=== PATIENT | female | born 1975 ===

== ENCOUNTER → 2025-05-18 08:54 | Outpatient (BNVA) | payer BC, SELFPAY | PROVIDERS: PCP Internal Medicine; Visit Provider Internal Medicine Cardiovascular Disease | DX: I49.3 Ventricular premature depolarization (principal) | CPT/HCPCS: 93005 ==

== ENCOUNTER 2025-06-23 11:02 | Outpatient (AMB) | payer BC, SELFPAY ==
[2025-06-23 11:09] VITALS: BP 130/90; PULSE 74; RESP 16; O2SAT 100; BMI 25.1
--- NOTE | 2025-06-23 11:09 | A.OFFPC_ITS ---
Vital Signs 06/23/25 11:09 Height 5 ft 4 in Weight 146 lb 4 oz BMI 25.1 BP 130/90 H Blood Pressure Location Lt brachial Position Sitting Respiration 16 Pulse 74 Pulse Source Pulse Oximeter Pulse Oximetry (%) 100 Oxygen Delivery Method Room Air Intake Visit Reasons: 6 months f/up Allergies No Known Allergies Allergy (Verified 05/29/25 15:32) Medication List - Last Reconciled 06/23/25 by Laury Browne MD amitriptyline 25 mg PO BEDTIME 90 days propranolol 20 mg PO DAILY 90 days Tobacco use date assessed: 01/08/25 Dental Screening Dental Screen Date: 01/08/25 HPI 6 months f/up HPI Details History of Present Illness The patient is a 49 year old female presenting for a 6-month follow-up appointment for management of palpitations and migraine headaches. Palpitations: - The patient has a history of palpitati ons, for which a Holter monitor study earlier this year revealed premature ventricular contractions (PVCs). - She is managed on propranolol 20 mg, a nd reports that the palpitations have been less frequent. - She has seen a multi share program coordinator, who recom mended a [employer] device for at-home monitoring and is also planning to schedule a stress test. - The patient notes her job is very stre ssful, which could be a contributing factor. Migraine Headaches: - The patient is managed for migraine he adaches with amitriptyline 25 mg at bedtime and propranolol. - She reports her headaches have been be tter with this combination therapy. Low Back Pain: - The patient reports a lower back pain . 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 Elevated Blood Pressure: - The patient's blood pressure at today' s visit was 130/90 mmHg, which was noted to be slightly elevated. - Her blood pressure was normal when millie cked at her cardiology appointment in April. Social History: - Employment: Works in childcare. - Activity: Reports she has been exercis ing. - Stress: Reports having a very stressfu l job. Problem List - Palpitations - Migraine headaches - History of Premature Ventricular Contr actions (PVCs) - Low back pain - Elevated blood pressure reading - Preventative care: Lab monitoring Plan - The patient will continue her current medications, including propranolol 20 mg and amitriptyline 25 mg. - For low back pain, it was recommended that the patient wear a Velcro support belt at work. - The patient's blood pressure will cont inue to be monitored. - The patient will continue to follow up with her multi share program coordinator and is scheduled for a stress test. - An order for blood work will be placed to be completed before her next appointment in November. - The patient declined the flu vaccine. - No medication refills are needed at th is time. Review of Systems - General: No fever no chills - Neurological: No headaches no dizziness - Ear nose throat: No sore throat no hearing difficulty no ear pain - Cardiovascular: No syncope, no chest pain - Gastrointestinal: No nausea vomiting or diarrhea - Endocrine: No polyuria polydipsia no heat intolerance - Genitourinary: No dysuria , no blood in urine Physical Exam - General: No acute distress - HEENT: No acute findings - Neck: Supple - Respiratory system: Able to talk in f ull sentences, no audible wheeze - Cardiovascular: S1-S2 regular in rate and rhythm - Gastrointestinal: No pain - Extremities: No new findings - [employer] MAN[employer]URING CONSULTANT: Alert awake oriented x3 motor in tact - Skin: Normal turgor PFSH Family History Sister No problems noted. Father Afib Social History Housing: House Alcohol intake: current Alcohol intake frequency: a few times a month Patient Tobacco Use Status: Never used Tobacco e-Cigarette/Vaping Use: Never Used service: No Current occupational status: employed Cognitive needs: No Hearing needs: No Vision needs: No Questionnaire Thrive Questionnaire Date Thrive assessed: 11/25/24 I am a: Patient What is your living situation today?: I have a steady place to live Within the past 12 months, did the food you bought not last and you didn't have the money to get more?: I choose not to answer this question Within the past 12 months, did you worry whether your food would run out before you got money to buy more?: I choose not to answer this question Do you have trouble paying for medicines?: I choose not to answer this question Do you have trouble getting transportation to medical appointments?: I choose not to answer this question Do you have trouble paying your heating and electricity bill?: I choose not to answer this question Do you have trouble taking care of your child, family member or friend?: I choose not to answer this question Do you have trouble with day-to-day activities such as bathing, preparing meals, shopping, managing finances, etc.?: I choose not to answer this question Are you currently unemployed and looking for a job?: I choose not to answer this question Are you interested in more education?: I choose not to answer this question Please select the resources that you would like help with: None THRIVE Score: 0 WILLIE-7 AMB Questionnaire WILLIE-7 Date WILLIE - 7 assessed: 11/25/24 Source: Developed by Drs. Karl Contreras, Katalina Khalil, Brian Burkett and colleagues, with an educational nicko from [employer]. Physical exam (Primary Care) Vital Signs: Last Vital Signs Pulse 74 06/23/25 11:09 Resp 16 06/23/25 11:09 BP 130/90 H 06/23/25 11:09 Pulse Ox 100 06/23/25 11:09 Oxygen Delivery Method Room Air 06/23/25 11:09 BMI result Body Mass Index 25.1 Tobacco/Smoking Status: Tobacco use Status Tobacco use date assessed 01/08/25 06/23/25 11:12 Patient Tobacco Use Status Never used Tobacco 06/23/25 11:12 e-Cigarette/Vaping Use Never Used 06/23/25 11:12 Thrive Assessment: Date of Thrive Assessment Date Thrive assessed 11/25/24 06/23/25 11:12 Coding Level of Care Code Est Pt Level 4 (03592) Diagnoses Other migraine without status migrainosus, intractable G43.819 Intractability: intractable Migraine type: other Status migrainosus presence: without status migrainosus PVC (premature ventricular contraction) I49.3 Elevated blood pressure reading R03.0 Chronic bilateral low back pain without sciatica M54.50; G89.29 Back pain laterality: bilateral Sciatica presence: without sciatica Stressful job Z56.6 Assessment & Plan Assessment & Plan (1) Migraine headache: Code(s): G43.909 - Migraine, unspecified, not intractable, without status migrainosus Category: Medical Qualifiers: Intractability: intractable Migraine type: other Status migrainosus presence: without status migrainosus Qualified Code(s): G43.819 - Other migraine, intractable, without status migrainosus (2) PVC (premature ventricular contraction): Code(s): I49.3 - Ventricular premature depolarization Category: Medical (3) Elevated blood pressure reading: Code(s): R03.0 - Elevated blood-pressure reading, without diagnosis of hypertension Category: Medical (4) Chronic lower back pain: Code(s): M54.50 - Low back pain, unspecified; G89.29 - Other chronic pain Category: Medical Qualifiers: Back pain laterality: bilateral Sciatica presence: without sciatica Qualified Code(s): M54.50 - Low back pain, unspecified; G89.29 - Other chronic pain (5) Stressful job: Code(s): Z56.6 - Other physical and mental strain related to work Category: Social Hx Plan Palpitations: - The patient has a history of palpitations, for which a Holter monitor study earlier this year revealed premature ventricular contractions (PVCs). - She is managed on propranolol 20 mg, and reports that the palpitations have been less frequent. - She has seen a multi share program coordinator, who recommended a [employer] device for at-home monitoring and is also planning to schedule a stress test. - The patient notes her job is very stressful, which could be a contributing factor. Migraine Headaches: - The patient is managed for migraine headaches with amitriptyline 25 mg at bedtime and propranolol. - She reports her headaches have been better with this combination therapy. Low Back Pain: - The patient reports a lower back pain. 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 Elevated Blood Pressure: - The patient's blood pressure at today's visit was 130/90 mmHg, which was noted to be slightly elevated. - Her blood pressure was normal when checked at her cardiology appointment in April. Social History: - Employment: Works in childcare. - Activity: Reports she has been exercising. - Stress: Reports having a very stressful job. Problem List - Palpitations - Migraine headaches - History of Premature Ventricular Contractions (PVCs) - Low back pain - Elevated blood pressure reading - Preventative care: Lab monitoring Plan - The patient will continue her current medications, including propranolol 20 mg and amitriptyline 25 mg. - For low back pain, it was recommended that the patient wear a Velcro support belt at work. - The patient's blood pressure will continue to be monitored. - The patient will continue to follow up with her multi share program coordinator and is scheduled for a stress test. - An order for blood work will be placed to be completed before her next appointment in November. - The patient declined the flu vaccine. - No medication refills are needed at this time. Orders: Orders Complete Blood Count Auto Diff Today G43.819 - Other migraine, intractable, without status migrainosus, G89.29 - Other chronic pain, I49.3 - Ventricular premature depolarization, M54.50 - Low back pain, unspecified, R03.0 - Elevated blood-pressure reading, without diagnosis of hypertension, Z56.6 - Other physical and mental strain related to work Lipid Panel Today G43.819 - Other migraine, intractable, without status migrainosus, I49.3 - Ventricular premature depolarization Comprehensive [place]. Panel Fast Today G43.819 - Other migraine, intractable, without status migrainosus, I49.3 - Ventricular premature depolarization TSH reflex Free T4 Today G43.819 - Other migraine, intractable, without status migrainosus, I49.3 - Ventricular premature depolarization
== END 2025-06-23 11:38 | disposition home or self-care (01) ==
LOC: HO.HMCC 11:03
PROVIDERS: PCP Internal Medicine; Visit Provider Internal Medicine
DX: G43.819 Other migraine, intractable, without status migrainosus (principal); I49.3 Ventricular premature depolarization; R03.0 Elevated blood-pressure reading, without diagnosis of hypertension; M54.50 Low back pain, unspecified; G89.29 Other chronic pain; Z56.6 Other physical and mental strain related to work

== ENCOUNTER 2025-07-10 07:31 | Day surgery (SDC) | payer BC, SELFPAY ==
--- OUTSIDE RECORDS SUMMARY | 2025-07-06 15:21 | XMS_ITS | Encounter Summary ---
Author Organization [facility] Address [address] [place] [address] Care Team Providers Care Chief Of Pediatric Urology Name Role Phone Laury Browne MD Primary Care Provider [phone] Encounter Details Date Type Department Care Team (Latest Contact Info) Description 01/06/2025 Lab Requisition [facility] - Main Lab [address] [place] [address] Ludin Lion MD [address] [address] Encounter for gynecological examination (general) (routine) without abnormal findings Social History Tobacco Use Types Packs/Day Years Used Date Smoking Tobacco: Never Smokeless Tobacco: Never Comments Unknown Sex and Gender Information Value Date Recorded Sex Assigned at Not on file Legal Sex Female 9:49 PM EST Gender Identity Not on file Sexual Orientation Not on file documented as of this encounter Plan of Treatment Not on file documented as of this encounter Procedures Procedure Name Priority Date/Time Associated Diagnosis Comments HPV WITH REFLEX GENOTYPE Routine 01/05/2025 12:00 AM EDT Encounter for gynecological examination (general) (routine) without abnormal findings PAP SMEAR Routine 01/05/2025 12:00 AM EDT Encounter for gynecological examination (general) (routine) without abnormal findings documented in this encounter Results * HPV with reflex genotype (01/05/2025 12:00 AM EDT) HPV Negative Negative LAB MICROBIOLOGY METHOD 01/13/2025 3:05 PM EDT [facility] Brushing/Spatula Cervix uteri structure / Unknown 01/05/2025 01/06/2025 6:37 AM EDT Ludin Lion MD LAB MOLECULAR DIAGNOSTICS BLU RUBIO Edited Result - Final [facility] [address] [place] [address], * Pap smear (01/05/2025 12:00 AM EDT) Interpretation Negative for intraepithelial lesion or malignancy 01/12/2025 4:18 PM EDT [facility] Clinical Information HSIL ON CX BX 202101/12/2025 4:18 PM EDT [facility] General Categorization Negative 01/12/2025 4:18 PM EDT [facility] Other Findings Fungal organisms morphologically consistent with Shilpa spp Shift in chilo suggestive of bacterial vaginosis 01/12/2025 4:18 PM EDT [facility] LMP 12/15/2024 01/12/2025 4:18 PM EDT [facility] Specimen Adequacy Satisfactory for evaluation, endocervical/cuadra sformation zone component absent 01/12/2025 4:18 PM EDT [facility] Pap Methodology Liquid Based Pap Test 01/12/2025 4:18 PM EDT [facility] Disclaimer The Pap test is a screening test which carries an inherent false negative rate. These test results should be correlated with the patient's clinical findings and history. This Pap test was processed using an automated screening system. Technical cytopathology services provided by [facility], at [address] [place] [address] (CLIA # [id number]/Diogo Doll MD, Sleep Technician.) 01/12/2025 4:18 PM EDT [facility] Console Pap Interpretation Reported 01/12/2025 4:18 PM EDT [facility] Brushing/Spatula Cervix uteri structure / Unknown 01/05/2025 01/06/2025 6:37 AM EDT us Ludin Lion MD LAB CYTOLOGY ORDERABLES Final Result [facility] [address] [place] [address], documented in this encounter Visit Diagnoses Diagnosis Encounter for gynecological examination (general) (routine) without abnormal findings documented in this encounter Care Teams Chief Of Pediatric Urology Relationship Specialty Start Date End Date Laury Browne MD [address] [place] [address] PCP - General Internal Medicine 01/12/22 documented as of this encounter
--- OUTSIDE RECORDS SUMMARY | 2025-07-06 15:21 | XMS_ITS | Clinical Summary ---
Author Organization [address] Address [address] [place] [address] Phone Care Team Providers Care Plant Buyer Name Role Phone Laury Browne MD Primary Care Provider [phone] Surgical History Surgery Date Site/Laterality Comments OTHER SURGICAL HISTORY PROCEDURE: DENIES PREVIOUS SURGERY Family History Medical History Relation Name Comments Stroke Father Breast cancer Maternal Grandmother Breast cancer Paternal Grandmother Relation Name Status Comments Father Maternal Grandmother Paternal Grandmother Social History Tobacco Use Types Packs/Day Years Used Date Smoking Tobacco: Never Smokeless Tobacco: Never Comments No Sex and Gender Information Value Date Recorded Sex Assigned at Not on file Legal Sex Female 9:49 PM EST Gender Identity Not on file Sexual Orientation Not on file Obstetrics History Para Term AB IAB SAB Ectopic Multiple Livin g Live Births 2 Last Filed Vital Signs Vital Sign Reading Time Taken Comments Blood Pressure 131/82 09/12/2022 11:44 AM EST Pulse 61 09/12/2022 11:44 AM EST Temperature - - Respiratory Rate - - Oxygen Saturation - - Inhaled Oxygen Concentration - - Weight 67.1 kg (148 lb) 02/12/2025 8:30 AM EDT Height 162.6 cm (5' 4 ) 02/12/2025 8:30 AM EDT Body Mass Index 25.4 02/12/2025 8:30 AM EDT Plan of Treatment Health Maintenance Due Date Last Done Comments Colorectal Cancer Screening: Colonoscopy 1974 DTaP,Tdap,and Td Vaccines (1 - Tdap) 1993 Hepatitis B Vaccines (1 of 3 - 19+ 3-dose series) 1993 HIV Screening 07/29/2022 Hepatitis C Screening 07/29/2022 Social Influencers of Health Screening 07/29/2022 Depression Screening 08/27/2024 Pneumococcal Vaccine: 50+ Years (1 of 1 - PCV) 2024 Zoster Vaccines (1 of 2) 2024 COVID-19 Vaccine (3 - 2024- season) 2025 12/14/2020, 11/21/2020 Influenza Vaccine (#1) 2025 06/22/2021, 2016 Breast Cancer Screening 02/12/2027 02/13/20, 04/23/2022, 07/05/2020, Additional history exists Cervical Cancer Screening: HPV 01/05/2030 01/05/2025 RSV Immunization Adult Patients (1 - 1-dose 75+ series) 2049 HIB Vaccines Aged Out No longer eligi ble based on patient's age to complete this topic HPV Vaccines Aged Out No longer eligi ble based on patient's age to complete this topic Hepatitis A Vaccines Aged Out No long er eligible based on patient's age to complete this topic IPV Vaccines Aged Out No longer eligi ble based on patient's age to complete this topic MMR Vaccines Aged Out No longer eligi ble based on patient's age to complete this topic Meningococcal ACWY Vaccine Aged Out N o longer eligible based on patient's age to complete this topic Meningococcal B Vaccine Aged Out No l onger eligible based on patient's age to complete this topic RSV Immunization Patients Under 20 months Aged Out No longer eligible based on patient's age to complete this topic Varicella Vaccines Aged Out No longer eligible based on patient's age to complete this topic Procedures Procedure Name Priority Date/Time Associated Diagnosis Comments MG MAMMO DIGITAL SCREENING W JABIER BILAT Routine 02/12/2025 8:36 AM EDT Encounter for screening mammogram for malignant neoplasm of breast HPV WITH REFLEX GENOTYPE Routine 01/05/2025 12:00 AM EDT Encounter for gynecological examination (general) (routine) without abnormal findings from Last 3 Months or Most Recently Relevant to Health Maintenance Results * MG Mammo Digital Screening w Jabier bilat (02/12/2025 8:36 AM EDT) Anatomical Region Laterality Modality Breast Bilateral Mammography 02/12/2025 8:54 AM EDT Impressions 02/12/2025 8:57 AM EDT No mammographic evidence of malignancy. A negative mammogram in the presence of a clinically suspicious palpable abnormality does not preclude the possibility of malignancy or alter the indications for biopsy. PQRI CPT II 3341F Code 70173, 28372 PQRI 225 CPT II 7025F TISSUE DENSITY: The breasts are heterogeneously dense, which may obscure small masses. (BI-RADS category C) IMPRESSION: Benign. BI-RADS CATEGORY: 1 - NEGATIVE RECOMMENDATION: Screening bilateral mammogram is recommended in 1 year. Mammo Location: [facility], [address] [place] [address] -------- FINAL REPORT -------- Dictated By: David Wright Dictated Date: 02/12/2025 08:54 ET Assigned Physician: David Wright Reviewed and Electronically Signed By: Dvaid Wright Signed Date: 02/12/2025 08:57 ET Workstation ID: [id number] Transcribed By: Self Edit Transcribed Date: 02/12/2025 08:54 ET Narrative 02/12/2025 8:57 AM EDT CLINICAL: The patient is a 49 years Female presenting for routine screening mammography. COMPARISON: Most recently 04/22/2022 and most remotely 04/09/2017. TECHNIQUE: Full-field digital mammography of the breasts bilaterally consisting of tomosynthesis in MLO and CC projection is performed in the [employer] 2000-D unit. Computer aided detection utilizing the iCAD system was utilized. FINDINGS: The breasts are again seen to be composed of a combination of fatty and moderately dense fibroglandular elements. There is no cluster of microcalcifications, mass, or area of architectural distortion. There is no skin thickening or nipple retraction. Procedure Note David Wright MD - 02/12/2025 CLINICAL: The patient is a 49 years Female presenting for routinescreening mammography. COMPARISON: Most recently 04/22/2022 and most remotely 04/09/2017. TECHNIQUE: Full-field digital mammography of the breasts bilaterallyconsisting of tomosynthesis in MLO and CC projection is performed in the[employer] 2000-D unit. Computer aided detection utilizing the [employer] was utilized. FINDINGS: The breasts are again seen to be composed of a combination offatty and moderately dense fibroglandular elements. There is no clusterof microcalcifications, mass, or area of architectural distortion. Thereis no skin thickening or nipple retraction. IMPRESSION: No mammographic evidence of malignancy. A negative mammogram in the presence of a clinically suspicious palpableabnormality does not preclude the possibility of malignancy or alter theindications for biopsy. PQRI CPT II 3341F Code 26507, 55652 PQRI 225 CPT II 7025F TISSUE DENSITY: The breasts are heterogeneously dense, which may obscuresmall masses. (BI-RADS category C) IMPRESSION: Benign. BI-RADS CATEGORY: 1 - NEGATIVE RECOMMENDATION: Screening bilateral mammogram is recommended in 1 year. Mammo Location: [facility] [place] [facility], [address] [place] [id number] -------- FINAL REPORT -------- Dictated By: David Wright Dictated Date: 02/12/2025 08:54 ET Assigned Physician: David Wright Reviewed and Electronically Signed By: David Wright Signed Date: 02/12/2025 08:57 ET Workstation ID: [id number] Transcribed By: Self Edit Transcribed Date: 02/12/2025 08:54 ET us Ludin Lion MD IMG BI PROCEDURES Final Result * HPV with reflex genotype (01/05/2025 12:00 AM EDT) HPV Negative Negative LAB MICROBIOLOGY METHOD 01/13/2025 3:05 PM EDT [facility] Brushing/Spatula Cervix uteri structure / Unknown 01/05/2025 01/06/2025 6:37 AM EDT us Ludin Lion MD LAB MOLECULAR DIAGNOSTICS BLU RUBIO Edited Result - Final [facility] [address] [place] [address], [place] [phone] from Last 3 Months or Most Recently Relevant to Health Maintenance Insurance [facility] Advance Directives Documents on File Type Date Recorded Patient Manager Life Expl anation Health Care Decision (hx) 01/27/2022 AD MAHER DIRECTIVE Health Care Decision (hx) 01/27/2022 AD MAHER DIRECTIVE Health Care Decision (hx) 01/27/2022 AD MAHER DIRECTIVE Care Teams Plant Buyer Relationship Specialty Start Date End Date Laury Browne MD [address] [place] [phone] PCP - General Internal Medicine 01/12/22
--- NOTE | 2025-07-07 14:07 | P.CONAN_ITS ---
Documented by User: Yashira Coppola NP 07/07/25 14:09 HPI - Anesthesia Eval Consult details Narrative: 49 yr old female for colonoscopy Palpitations: Follows with [facility] PCP, last visit 06/23/25 - The patient has a history of palpitations, for which a Holter monitor study earlier this year revealed premature ventricular contractions (PVCs). - She is managed on propranolol 20 mg, and reports that the palpitations have been less frequent. - She has seen a senior market intelligence consultant, who recommended a KardiaMobile device for at-home monitoring and is also planning to schedule a stress test. - The patient notes her job is very stressful, which could be a contributing factor. [facility] Active Problems Active Problems: All Active Problems Stressful job (Acute) Chronic lower back pain (Acute) Elevated blood pressure reading (Acute) PVC (premature ventricular contraction) (Acute) Family history of early CAD (Acute) Family history of stroke (Acute) Family history of atrial fibrillation (Acute) Over weight (Acute) Palpitation (Acute) Colon cancer screening (Acute) Hot flashes (Acute) Fatigue (Acute) Mood swings (Acute) Bloating (Acute) Lack of energy (Acute) Encounter for general adult medical examination with abnormal findings (Acute) Migraine headache (Acute) Past Medical History Medical History Migraines PAC (premature atrial contraction) PVCs (premature ventricular contractions) Palpitations Family History Family History Sister No problems noted. Father Afib Social History Social History Housing: House Alcohol intake: current Alcohol intake frequency: a few times a month Patient Tobacco Use Status: Never used Tobacco e-Cigarette/Vaping Use: Never Used Are you DNR?: No Advance Directives: No Advance Directives Information Provided: Yes FDLMP: 06/20/2025 service: No Current occupational status: employed Cognitive needs: No Hearing needs: No Vision needs: No Meds Allergies Allergy/AdvReac Type Severity Reaction Status Date / Time No Known Allergies Allergy Verified 05/29/25 15:32 Exam Narrative Narrative: ECHO 11/2024 Conclusions: - The left ventricular systolic function is normal. The visually estimated ejection fraction is between 60-65%. - No obvious valvular pathology seen on this study. EKG 11/2024 NSR rate 72 Documented by User: Leatha De La O MD 07/10/25 09:51 PMFSH Past Medical History Medical History Migraines PAC (premature atrial contraction) PVCs (premature ventricular contractions) Palpitations Family History Family History Sister No problems noted. Father Afib Surgical History History of Problems with Anesthesia: No Social History Social History Housing: House Alcohol intake: current Alcohol intake frequency: a few times a month Patient Tobacco Use Status: Never used Tobacco e-Cigarette/Vaping Use: Never Used Are you DNR?: No Advance Directives: No Advance Directives Information Provided: Yes FDLMP: 06/20/2025 service: No Current occupational status: employed Cognitive needs: No Hearing needs: No Vision needs: No Meds Allergies Allergy/AdvReac Type Severity Reaction Status Date / Time No Known Allergies Allergy Verified 05/29/25 15:32 Exam Airway Mallampati Class: II TM Dist: >3cm Neck ROM: Full Loose/Missing/Broken Teeth: No Heart: RRR Lungs: CTA Assessment and Plan Assessment Anesthesia Assessment: Anesthesia Plan Discussed and Chart Reviewed Final Anesthetic Review History of Problems with Anesthesia: No NPO: Yes ASA Class: II Final Preanesthetic Review: Meds/Allgs Chart Reviewed, Consent Obtained/Reviewed and Anes Risks/Benef Reviewed Patient Risk: Low Procedure Risk: Low Anesthetic Plan Anesthetic Plan: MAC: Disposition: Standard PACU
[2025-07-08 14:06] VITALS: BMI 25.6
[2025-07-10 07:52] LABS: UPreg QC Valid YES
[2025-07-10 07:54] VITALS: BP 122/84; PULSE 69; RESP 18; TEMP 36.7; O2SAT 99; BMI 25.2
[2025-07-10] MEDS: Lactated Ringers 1,000 ML 100 ML IVCONT (08:15)
[2025-07-10 10:20] VITALS: BP 96/63; PULSE 68; RESP 18; TEMP 36.4; O2SAT 99
--- NOTE | 2025-07-10 10:23 | PM.OP ---
Brief Operative Note Date of Service: 07/10/25 Pre-op diagnosis: Screening Post-op diagnosis: other (Polyps) Procedure: Colonoscopy to the cecum with cold snare polypectomy of Transverse colon polyp, and bx/removal of Ascending colon polyp Surgeon: Karl Bo MD Anesthesia: MAC Was an Pin Sorter And Bagger used for this Procedure?: No Estimated blood loss (mL): 2.0 Pathology: other (A. Transverse colon polyp B. Ascending colon polyp) Condition: stable Disposition: PACU
[2025-07-10 10:35] VITALS: BP 107/70; PULSE 64; RESP 13; O2SAT 100
[2025-07-10 10:50] VITALS: BP 125/79; PULSE 54; RESP 13; TEMP 37.2; O2SAT 100
--- NOTE | 2025-07-10 11:23 | OP_ITS ---
DATE OF SERVICE: 07/10/2025 SURGEON: Karl Bo MD INDICATIONS: The patient presents for evaluation of colorectal cancer screening. Full consent has been obtained from her for this, including risks of bleeding and perforation. PREOPERATIVE DIAGNOSIS: Colorectal cancer screening. POSTOPERATIVE DIAGNOSIS: PROCEDURE PERFORMED: ESTIMATED BLOOD LOSS: COMPLICATIONS: ANESTHESIA: Medication used, monitored anesthesia care. ASSISTANTS: SPECIMENS: POSTOPERATIVE DIAGNOSES: Colorectal cancer screening, small colon polyps, diverticulosis, and internal hemorrhoids. PROCEDURES PERFORMED: Colonoscopy to the cecum with cold snare polypectomy x 1 and biopsy and removal of polyp. DESCRIPTION OF PROCEDURE: The patient was placed in the left lateral decubitus position. The digital rectal exam revealed no abnormalities. The Olympus video pediatric colonoscope was entered into the rectum and advanced easily to the cecum. Once in the cecum, I did identify normal-appearing cecal pouch with appendiceal orifice and a normal-appearing ileocecal valve. The entire cecum and ileocecal valve appeared normal. There was transillumination of light deep in the right lower quadrant. The scope was slowly withdrawn assessing all mucosal surfaces carefully. Preparation was excellent. In the proximal ascending colon was a flat, approximately 3 or 4 mm polyp, which was biopsied and completely removed with a cold biopsy forceps. In the transverse colon was an approximately 5 or 6 mm polyp, which was removed by cold snare polypectomy and recovered by suction. The polypectomy site appeared clean, without any sign of residual polyp nor significant bleeding. I did not visualize any other polyps, colitis, nor angiodysplasia. There was a mild amount of sigmoid diverticulosis. In the rectum, scope was retroflexed visualizing internal hemorrhoids but no other pathology. The rectal mucosa appeared normal. Scope was straightened and withdrawn from the patient. She tolerated the procedure well and was returned to the recovery area in stable condition. IMPRESSION: 1. Small colon polyps. 2. Mild diverticulosis. 3. Small internal hemorrhoids. PLAN: The results of the biopsy will be checked. If either of the polyps is a tubular adenoma, then I would recommend a followup colonoscopy in 5 years. If they are both hyperplastic, I would recommend a followup colonoscopy in 10 years. She will otherwise see me as needed. MD REJI Burton/DARLEEN / [id number] MTDD
== END 2025-07-10 11:12 | disposition home or self-care (01) ==
PROVIDERS: Nurse Practitioner; PCP Internal Medicine; Visit Provider Internal Medicine
PROC: 0DJD8ZZ Inspection of Lower Intestinal Tract, Via Natural or Artificial Opening Endoscopic (ICD-10-PCS; CPT 45378; principal; 2025-07-10 08:30)
DX: Z12.11 Encounter for screening for malignant neoplasm of colon (principal); D12.2 Benign neoplasm of ascending colon; D12.3 Benign neoplasm of transverse colon; K57.30 Diverticulosis of large intestine without perforation or abscess without bleeding; K64.8 Other hemorrhoids; G43.909 Migraine, unspecified, not intractable, without status migrainosus; R00.2 Palpitations; Z79.899 Other long term (current) drug therapy
CPT/HCPCS: 45385; 45380; 81025; 88305; J2003; J2704; J3010

== ENCOUNTER → 2025-08-25 08:02 | Outpatient (REF) | payer BC, SELFPAY ==
--- OUTSIDE RECORDS SUMMARY | 2025-07-10 03:30 | XMS_ITS ---
Author Organization [facility] Address [address] [place] [address] Care Team Providers Care Outsole Cementer Name Role Phone Pavan KENDALL, Laury Primary Care Provider Karl Buck [phone] REASON FOR VISIT screening Encounters Encounter Location Date Provider Diagnosis [facility] [place] Out[place] [address] [place], [place] [phone] 07/10/2025 Karl Bo Colon cancer scree brenda Z12.11 and Colon polyps K63.5 Assessments Encounter Date Diagnosis (ICD Code) Assessment Notes Treatment Notes Treatment Clinical Notes Section Notes 07/10/2025 Colon cancer screening (ICD-10 - Z12.11) 07/10/2025 Colon polyps (ICD-10 - K63.5) Plan Of Treatment No Information Progress Notes * AIDENHIWOTEMBERDOB:[birth year] (49 yo F)Acc No.[id number]:07/10/2025 COLON WITH MAC Patient: EMBER VILLASENOR Provider: Jam Bo MD :1975 A ge:49 Y S ex:Female Date:07/10/2025 Address:[address] [place], [place] [id number] Pcp:Laury Browne MD Subjective: * Chief Complaints: * S creening Assessment: * Assessment: 1. C olon cancer screening - Z12.11 (Primary) 2 . C olon polyps - K63.5? Plan: * Procedure Codes: 4 5379 COLONOSCOPY W/FB [id number] LESION REMOVAL [id number] INTRVL 3+YRS PTS CLNSCP [id number] RCMND FLW-UP 10 YRS DOCD Billing Information: * Procedure Codes: 60450 COLONOSCOPY W/FB REMOVAL. 57030 LESION REMOVAL COLONOSCOPY. 0529F INTRVL 3+YRS PTS CLNSCP DOCD. 0528F RCMND FLW-UP 10 YRS DOCD. * The named appointment provid er may or may not be the originator of this progress note, and it is not deemed complete until electronically signed by the appointment provider. Sign off status: Pending * Provider: Jam Bo MD Date: 1 09/09/2024 Generated for Fang santos/Rhiannon/Edditting on: 09:27 AM EST
--- NOTE | 2025-08-25 08:05 | CA_ITS ---
Acquisition Time: 2025-08-25 08:02:24 Total Exercise Time: 00:10:00 Test Indications: pac's, pvc's Medications: Protocol: KOTA Max HR: 151 BPM 88% of Pred: 170 BPM Max BP: 186/84 mmHG Max Work Load: 11.7 METS Exercise stress test with exercise 10 mins of Kota Protocol, achieving 88% MPHR, without any reports of CP or dizziness, without any arrythmias, with normotensive response to exercise. Without any EKG changes meeting criteria for ischemia. In recovery, pt continued to feel well. Test reveiwed with Dr. Hahn. Referred By: Andreas Keith Electronically Signed By: Boston Escalante
--- OUTSIDE RECORDS SUMMARY | 2025-08-25 09:27 | XMS_ITS | Patient Health Record ---
Author Organization [facility] Address [address] [place] [address] Care Team Providers Care Lpn Cma Name Role Phone Pavan KENDALL, [facility] Primary Care Provider Karl Buck Unavailable [phone] Allergies No Known Allergies Results Component Value Reference Range Notes Pathology (Not yet reviewed by provider) Interpretation: Performing Lab:[facility], [address] [place] [phone] Notes/Report: Ur Preg Test Reviewed date:07/13/2025 01:12:42 AM Interpretation: Performing Lab:[facility], [address] [place] [phone] Notes/Report: Urine NEGATIVE NEGATIVE This test was developed to detect early . False negative results may occur after the 5th - 7th week of when using this test method. If clinically indicated, consider a serum hCG. Reason For Referral Referring Provider First Name Bebe Referring Provider Last Name Shannon Referring Provider Speciality Internal M edicine Referred Organization [facility] Referred Provider Karl Bo Referred Address [address] [place] [address],[address],[place], [place],[address], Referred Provider Specialty Gastroentero logy General Notes Latricia Hernandez 2024 02:40:34 PM >requested referral from Dr. Ortega' office for visit with Dr. Bo on 04-07-2025 Referral Priority Routine Medications Medication SIG (Take, Route, Fr equency, Duration) Notes Start Date End Date Status Amitriptyline HCl Ac tive Propranolol HCl Acti ve Social History Tobacco Use: Social History Observation Description Date Details (start date - stop date) Never Smoker NA - NA Social History Drug/Alcohol: Social Info Question Answer Notes AUDIT-C (Standard) Did you have a drink containing alcohol in the past year? Yes How often did you have a drink containing alcohol in the past year? Never (0 point) How many drinks did you have on a typical day when you were drinking in the past year? 1 or 2 drinks (0 point) How often did you have six or more drinks on one occasion in the past year? Never (0 point) Points 0 Interpretation Negative Tobacco Use: Social Info Question Answer Notes Tobacco Control (Standard) Tobacco use: Nonsmoker Additional Details Category Social Info Options Details Miscellaneous: Marital status: Occupation: Preschool teache r for [employer] Problems Problem Type SNOMED Code ICD Code Onset Dates Problem Status W/U Status Risk Notes Problem Colon cancer screening (622972206) Colon cancer screening (Z12.11) Active confirmed Problem Preprocedural examination (887606739943740) Preprocedural examination (Z01.818) Active confirmed Vital Signs Blood pressure diastolic 77 mm Hg 04/07/2025 Height 64 in 04/07/2025 Blood pressure systolic 111 mm Hg 04/07/2025 Weight 146 lbs 04/07/2025 BMI 25.06 kg/m2 04/07/2025 Procedures Procedure Date Ordered Date Performed Result Body Sit e COLONOSCOPY 04/07/2025 N/A Encounters Encounter Location Date Provider Diagnosis [facility] [place] [facility] [place] [address] [place] [phone] 07/10/2025 Karl Bo Colon cancer screeni ng Z12.11 and Colon polyps K63.5 [facility] [address] [place] [address] 04/07/2025 Karl Bo Colon cancer screeni ng Z12.11 and Preprocedural examination Z01.818 Assessments Encounter Date Diagnosis (ICD Code) Assessment Notes Treatment Notes Treatment Clinical Notes Section Notes 07/10/2025 Colon cancer screening (ICD-10 - Z12.11) 07/10/2025 Colon polyps (ICD-10 - K63.5) 04/07/2025 Colon cancer screening (ICD-10 - Z12.11) Overall, Ember appears quite well. Given her age and excellent clinical appearance, I did recommend a colonoscopy for screening purposes. We did review the rationale for that in regard to colon cancer prevention. Full consent has been obtained for this, including risks of bleeding and perforation. The procedure will be done with monitored anesthesia care. Ember was comfortable with this plan. Thank you again for allowing me to participate in Ember's care. I shall continue to keep you advised of her progress. 04/07/2025 Preprocedural examination (ICD-10 - Z01.818) Overall, Ember appears quite well. Given her age and excellent clinical appearance, I did recommend a colonoscopy for screening purposes. We did review the rationale for that in regard to colon cancer prevention. Full consent has been obtained for this, including risks of bleeding and perforation. The procedure will be done with monitored anesthesia care. Ember was comfortable with this plan. Thank you again for allowing me to participate in Ember's care. I shall continue to keep you advised of her progress. Plan Of Treatment Pending Test Test Name Order Date COLONOSCOPY 04/07/2025 Pathology 07/10/2025 Insurance Providers Payer Name Payer Address Payer Phone Subscriber Number Group Number Insured Name Patient Relationship to Insured Coverage Start Date Coverage End Date [facility] [employer] [address] [place] [address] [id number] EBMER Self - patient is the insured Medical (General) History Medical History History ICD Code Denies RI,DM,CVA,Lung disease,renal dise ase Migraines Irregular heartbeat - had a 3 day monitor and a Cardiac Echo- -seeing [facility] [place] in 04/2025
--- OUTSIDE RECORDS SUMMARY | 2025-08-25 09:27 | XMS_ITS | Encounter Summary ---
Author Organization [facility] Address [address] [place] [address] Care Team Providers Care Cook Tortilla Name Role Phone Laury Browne MD Primary Care Provider [phone] Encounter Details Date Type Department Care Team (Latest Contact Info) Description 01/06/2025 Lab Requisition [facility] Lab [address] [place] [address] Ludin Lion MD [address] [address] Encounter for gynecological examination (general) [...] LAB MICROBIOLOGY METHOD 01/13/2025 3:05 PM EDT [facility] Brushing/Spatula Cervix uteri structure / Unknown 01/05/2025 01/06/2025 6:37 AM EDT Ludin Lion MD LAB MOLECULAR DIAGNOSTICS BLU RUBIO Edited Result - Final [facility] [address] [place] [address], * Pap smear (01/05/2025 12:00 AM EDT) Interpretation Negative for intraepithelial lesion or malignancy 01/12/2025 4:18 PM EDT [facility] at 1618 EDT Clinical Information HSIL ON CX BX 202101/12/2025 4:18 PM EDT [facility] General Categorization Negative 01/12/2025 4:18 PM EDT [facility] Other Findings Fungal organisms morphologically consistent with Shilpa spp Shift in chilo suggestive of bacterial vaginosis 01/12/2025 4:18 PM EDT [facility] LMP 12/15/2024 01/12/2025 4:18 PM EDT [facility] Specimen Adequacy Satisfactory for evaluation, endocervical/cuadra sformation zone component absent 01/12/2025 4:18 PM EDT [facility] Pap Methodology Liquid Based Pap Test 01/12/2025 4:18 PM EDT [facility] Disclaimer The Pap test is a screening test which carries an inherent false negative rate. These test results should be correlated with the patient's clinical findings and history. This Pap test was processed using an automated screening system. Technical cytopathology services provided by [facility], at [address] [place] [address] (CLIA # [id number]/Diogo Dlol MD, Inspector Dials.) 01/12/2025 4:18 PM EDT [facility] Console Pap Interpretation Reported 01/12/2025 4:18 PM EDT [facility] Brushing/Spatula Cervix uteri structure / Unknown 01/05/2025 01/06/2025 6:37 AM EDT us Ludin Lion MD LAB CYTOLOGY ORDERABLES Final Result [facility] [address] [place] [address], documented in this encounter Visit Diagnoses Diagnosis Encounter for gynecological examination (general) (routine) without abnormal findings documented in this encounter Care Teams Cook Tortilla Relationship Specialty Start Date End Date Laury Browne MD [address] [place] [address] PCP - General Internal Medicine 01/12/22 documented as of this encounter
--- OUTSIDE RECORDS SUMMARY | 2025-08-25 09:28 | XMS_ITS | Clinical Summary ---
Author Organization [address] Address [address] [place] [address] Phone Care Team Providers Care Crankshaft Straightener Name Role Phone Laury Browne MD Primary Care Provider [phone] Surgical History Surgery Date Site/Laterality Comments OTHER [...] for biopsy. PQRI CPT II 3341F Code 52843, 26121 PQRI 225 CPT II 7025F TISSUE DENSITY: The breasts are heterogeneously dense, which may obscure small masses. (BI-RADS category C) IMPRESSION: Benign. BI-RADS CATEGORY: 1 - NEGATIVE RECOMMENDATION: Screening bilateral mammogram is recommended in 1 year. Mammo Location: [facility], [address] [place] [address] -------- FINAL REPORT -------- Dictated By: David Wright Dictated Date: 02/12/2025 08:54 ET Assigned Physician: David Wright Reviewed and Electronically Signed By: David Wright Signed Date: 02/12/2025 08:57 ET Workstation ID: [id number] Transcribed By: Self Edit Transcribed Date: 02/12/2025 08:54 ET Narrative 02/12/2025 8:57 AM EDT CLINICAL: The patient is a 49 years Female presenting for routine screening mammography. COMPARISON: Most recently 04/22/2022 and most remotely 04/09/2017. TECHNIQUE: Full-field digital mammography of the breasts bilaterally consisting of tomosynthesis in MLO and CC projection is performed in the Mediaspectrume 2000-D unit. Computer aided detection utilizing the [...] 2000-D unit. Computer aided detection utilizing the BalayaDsystem was utilized. FINDINGS: The breasts are again [...] for biopsy. PQRI CPT II 3341F Code 67385, 99459 PQRI 225 CPT II 7025F TISSUE DENSITY: The breasts are heterogeneously dense, which may obscuresmall masses. (BI-RADS category C) IMPRESSION: Benign. BI-RADS CATEGORY: 1 - NEGATIVE RECOMMENDATION: Screening bilateral mammogram is recommended in 1 year. Mammo Location: [facility] [place] [facility], [address] [place] [phone] -------- FINAL REPORT -------- Dictated By: David Wright Dictated Date: 02/12/2025 08:54 ET Assigned Physician: David Wright Reviewed and Electronically Signed By: David Wright Signed Date: 02/12/2025 08:57 ET Workstation ID: [id number] Transcribed By: Self Edit Transcribed Date: 02/12/2025 08:54 ET us Ludin Lion MD IMG BI PROCEDURES Final Result * HPV with reflex genotype (01/05/2025 12:00 AM EDT) HPV Negative Negative LAB MICROBIOLOGY METHOD 01/13/2025 3:05 PM EDT [facility] Brushing/Spatula Cervix uteri structure / Unknown 01/05/2025 01/06/2025 6:37 AM EDT us Ludin Lion MD LAB MOLECULAR DIAGNOSTICS BLU RUBIO Edited Result - Final [facility] [address] [place] [address], [place] [phone] from Last 3 Months or Most Recently Relevant to Health Maintenance Insurance [facility] Advance Directives Documents on File Type Date Recorded Patient Financial Planning Consultant Expl anation Health Care Decision (hx) 01/27/2022 AD MAHER DIRECTIVE Health Care Decision (hx) 01/27/2022 AD MAHER DIRECTIVE Health Care Decision (hx) 01/27/2022 AD MAHER DIRECTIVE Care Teams Crankshaft Straightener Relationship Specialty Start Date End Date Laury Browne MD [address] [place] [phone] PCP - General Internal Medicine 01/12/22
== END ==
LOC: HO.CARD 08:02
PROVIDERS: PCP Internal Medicine; Visit Provider Internal Medicine Cardiovascular Disease
DX: I49.3 Ventricular premature depolarization (principal)
CPT/HCPCS: 93017

== ENCOUNTER → 2025-08-25 08:05 | Outpatient (BNV) | payer BC, SELFPAY | PROVIDERS: PCP Internal Medicine | DX: I49.3 Ventricular premature depolarization (principal) | CPT/HCPCS: 93016; 93018 ==